=== PATIENT | female | born 1995 | race Two or more races ===

== ENCOUNTER 2020-11-03 08:00 | Inpatient (IN) | payer OTHER ==
[~2020-11-03] VITALS: Ht 160 cm; Wt 2.7 kg
[2020-11-10] MEDS ORDERED: PRENATAL TABLE1 EAC1 PO (07:56)
== END 2020-11-13 15:25 | disposition home or self-care (01) | DRG 788 ==
LOC: O/R 11-10 07:22 → OB/GYN 11-10 07:22
PROVIDERS: ADMIT Obstetrics & Gynecology; ATTEND Obstetrics & Gynecology
PROC: 4A1HXFZ Monitoring of Products of Conception, Cardiac Rhythm, External Approach (ICD-10-PCS; 2020-11-10)
PROC: 10D00Z1 Extraction of Products of Conception, Low, Open Approach (ICD-10-PCS; principal; 2020-11-10 12:00)
DX: O82 Encounter for cesarean delivery without indication (principal); O99.824 Streptococcus B carrier state complicating childbirth; Z37.0 Single live birth; Z3A.39 39 weeks gestation of pregnancy